=== PATIENT | female | born 1975 | race African-American/Black ===

== ENCOUNTER 2019-07-11 12:35 | Emergency (ER) | payer OTHER ==
[~2019-07-11] VITALS: Ht 162.6 cm; Wt 109.0 kg
[2019-07-11] MEDS ORDERED: ACETAMINOPHEN 500MG TABLET PO ONE (14:45)
[2019-07-11] MEDS ORDERED: ALBUTEROL (0.5%) 2.5MG/0.5ML NEB HHN ONE (15:00)
[2019-07-11] MEDS ORDERED: IPRATROPIUM BROMIDE (0.02%) 0.5MG/2.5ML NEB HHN ONE (15:00)
[2019-07-11] MEDS ORDERED: DEXAMETHASONE 4MG TABLET PO NR (15:15)
[2019-07-11] MEDS ORDERED: AMLODIPINE 5MG TABLET PO ONE (15:45)
[2019-07-11] MEDS ORDERED: CLONIDINE 0.2MG TABLET PO ONE (15:45)
[2019-07-11 16:37] VITALS: BP 136/110
== END 2019-07-11 17:28 | disposition home or self-care (01) ==
LOC: ER 12:35
DX: J45.901 Unspecified asthma with (acute) exacerbation (principal); I10 Essential (primary) hypertension; J44.9 Chronic obstructive pulmonary disease, unspecified; Z88.6 Allergy status to analgesic agent
CPT/HCPCS: 71045; 94640; 99284; J8540; Z7610